=== PATIENT | female | born 1940 | race Caucasian/White ===

== ENCOUNTER → 2017-10-07 | Outpatient (CLI) | payer OTHER, BC ==
[~2017-10-07] VITALS: Ht 157.5 cm; Wt 51.7 kg
[~2017-10-07] MED LIST: ADULT LOW DOSE81 MG PO; ASTAXANTHIN4 MG PO; BIOTIN1 MG PO; CENTRUM SILVER1 EAC4 PO; CINSULIN; CLARITIN10 MG PO; CO Q-10100 MG PO; COQ-10100 MG PO; DYAZIDE 37.5-21 EACH PO; ELIQUIS5 MG PO; ESTRADERM1 EACH TD; FISH OIL 1,001000 M2 PO; GINGER500 MG PO; HAIR, SKIN & N1 EAC3 PO; HYDROCHLOROTH12.5 M1 PO; KLOR-CON M2020 MEQ PO; LOVASTATIN 20 M20 MG PO; MAGOX 400400 MG PO; MOVE FREE JOIN1 EACH PO; PROBIOTIC1 EAC1 PO; RAMIPRIL5 MG PO; SYNTHROID50 MCG PO; SYNTHROID75 MCG PO; SYSTANE BALANCE10 ML; SYSTANE BALANCE10 ML OPHTHALMIC; TURMERIC500 M2 PO; VAGIFEM10 MCG PO; VITAMIN D-32000 UNIT PO; [UNRECOGNIZED DRUG - OTHER] PO
--- NOTE | ~2017-10-07 | P ---
[facility] [place] [address] PROCEDURE REPORT Name: CAMILA ONEIL Room #: REG [facility]#: [id number] Admission: 10/07/17 Attend Phys: Kamari Mendoza MD Discharge: Date of : 44 Report #: [id number] THIS REPORT FOR: //name// CC: Kamari Huynh MD BRIEF HISTORY: The patient is a 76-year-old woman for average-risk screening colonoscopy. Last colonoscopy was 11 years ago. PREOPERATIVE DIAGNOSIS: Average-risk screening colonoscopy. POSTOPERATIVE DIAGNOSIS: Normal average-risk screening colonoscopy. MEDICATIONS: Deep sedation with propofol per anesthesia. SPECIMEN: None. ESTIMATED BLOOD LOSS: None. PROCEDURE: Colonoscopy to cecum and terminal ileum. FINDINGS: Prior to propofol sedation, procedure of colonoscopy was discussed with the patient as well as potential risks and its complications. She indicates she understands and desires to proceed. DESCRIPTION OF PROCEDURE: With the patient in the left lateral decubitus position, digital examination was completed, which revealed no abnormalities. Subsequently, the [employer] video colonoscope was introduced in the rectum, advanced under direct vision to the cecum. Done with minimal difficulty. Cecum was identified by the ileocecal valve and the appendiceal orifice. I was able to visualize the distal segment of the terminal ileum, which was inspected and noted to be unremarkable. At that point, the scope was withdrawn and careful circumferential views obtained including retroflexing the scope in the ascending colon. Upon slow withdrawal of the scope, the prep was noted to be good. The mucosa was within normal limits. Normal vascular pattern, normal light reflex. As we withdrew the scope, no neoplastic or inflammatory changes were seen. She had a normal endoscopic examination of the colon. Scope was withdrawn in the rectum. No abnormalities were seen. Upon retroflexion, no abnormalities were seen. Scope was withdrawn and the patient tolerated the procedure well. CONDITION OF THE PATIENT UPON DISCHARGE: Following the procedure, the patient was drowsy, arousable and conversant and will be discharged to home when fully ambulatory. INSTRUCTIONS TO THE PATIENT AND FAMILY AT THE TIME OF DISCHARGE: No neoplastic [facility] [address] [place] [address] PROCEDURE REPORT Name: CAMILA ONEIL Room #: REG [facility]#: [id number] Admission: 10/07/17 Attend Phys: Kamari Mendoza MD Discharge: Date of : 44 Report #: [id number] or inflammatory changes were seen. This is a negative average-risk screening colonoscopy. I have suggested she continue high-fiber diet. I would also recommend she return in 10 years for average-risk screening colonoscopy. She will otherwise return to the care of Dr. Katherine Huynh and return to see me as needed. Last colonoscopy was 11 years ago. Withdrawal time from the cecum was 14 minutes and 41 seconds. <ELECTRONICALLY SIGNED> By: Kamari Mendoza MD 10/07/17 1533 [id number] [id number] Kamari Mendoza MD /nt
== END | disposition home or self-care (01) ==
LOC: GI 07:41
DX: Z12.11 Encounter for screening for malignant neoplasm of colon (principal); I10 Essential (primary) hypertension; E78.5 Hyperlipidemia, unspecified; E03.9 Hypothyroidism, unspecified; Z98.890 Other specified postprocedural states; Z79.899 Other long term (current) drug therapy; Z88.0 Allergy status to penicillin; Z88.2 Allergy status to sulfonamides; Z88.8 Allergy status to other drugs, medicaments and biological substances
CPT/HCPCS: 62110; 62900

== ENCOUNTER 2017-11-25 19:59 | Emergency (ER) | payer OTHER, BC ==
[~2017-11-25] VITALS: Ht 157.5 cm; Wt 51.7 kg
[~2017-11-25 19:59] MED LIST changes: -BIOTIN1 MG PO; -CINSULIN; -COQ-10100 MG PO; -SYSTANE BALANCE10 ML; -VAGIFEM10 MCG PO
[2017-11-25] MEDS ORDERED: VAGIFEM10 MCG PO (20:17)
[2017-11-25] MEDS ORDERED: BIOTIN1 MG PO (20:18)
[2017-11-25] MEDS ORDERED: FISH OIL 1,001000 M2 PO (20:19)
[2017-11-25] MEDS ORDERED: COQ-10100 MG PO (20:19)
[2017-11-25] MEDS ORDERED: PROBIOTIC1 EAC1 PO (20:21)
[2017-11-25] MEDS ORDERED: SYSTANE BALANCE10 ML ×2 (20:21→20:22)
[2017-11-25] MEDS ORDERED: TURMERIC500 M2 PO (20:22)
[2017-11-25] MEDS ORDERED: CINSULIN (20:22)
== END 2017-11-25 23:01 | disposition home or self-care (01) ==
LOC: ER 19:59
DX: S52.591A Other fractures of lower end of right radius, initial encounter for closed fracture (principal); S46.811A Strain of other muscles, fascia and tendons at shoulder and upper arm level, right arm, initial encounter; I10 Essential (primary) hypertension; E78.5 Hyperlipidemia, unspecified; E03.9 Hypothyroidism, unspecified; Z88.8 Allergy status to other drugs, medicaments and biological substances; Z88.0 Allergy status to penicillin; Z88.7 Allergy status to serum and vaccine; Z88.2 Allergy status to sulfonamides; W01.0XXA Fall on same level from slipping, tripping and stumbling without subsequent striking against object, initial encounter; Y93.89 Activity, other specified; Y92.89 Other specified places as the place of occurrence of the external cause; Y99.8 Other external cause status